=== PATIENT | male | born 1935 | race Caucasian/White ===

== ENCOUNTER 2017-04-13 08:46 | Inpatient (IN) | payer MEDICARE, MEDICAID ==
[~2017-04-13] VITALS: Ht 152.4 cm; Wt 61.7 kg
[~2017-04-13 08:46] MED LIST: AMLO5TAB88 PO; ASPI-1159 PO; CARV12.545 PO; CLOP75TA33 PO; DAILYVITE PO; DOCU-150 PO; DUTA0.5C15 PO; FURO80TA3 PO; MECL-127 PO; OMEP20CA10; QUET25TA PO; QUET25TA34; ROPI0.5T PO; SEVE800T8 PO; SIMV20TA6 PO; TAMS0.4C31 PO; VALS80TA2 PO
[2017-04-13 11:04] LABS: BASOPHILS % 0.3 % (0.0-2.0); HEMATOCRIT. 29.8 % (42.0-52.0); HEMOGLOBIN. 10.2 g/dL (14.0-18.0); LYMPHOCYTES % 8.2 % (20.0-50.0); MEAN CORPUSCULAR HEMOGLOBIN 32.7 pg (28.0-32.0); MEAN CORPUSCULAR VOLUME 95.7 fL (80.0-94.0); MEAN PLATELET VOLUME 8.7 fl (7.4-10.4); MONOCYTES % 9.8 % (2.0-8.0); NEUTROPHILS % 81.7 % (40.0-76.0); PLATELET 155 x1000/uL (130-400); RED BLOOD CELL COUNT 3.11 mill/uL (4.7-6.1); RED CELL DISTRIBUTION WIDTH 17.6 % (11.6-14.6)
[2017-04-13 11:13] LABS: CHLORIDE 99 mEq/L (98-107)
[2017-04-13 11:16] LABS: INR 1.2; PARTIAL THROMBOPLASTIN TIME 30.8 sec (24.0-34.0); PROTHROMBIN TIME 12.2 sec
[2017-04-13 11:20] LABS: CARBON DIOXIDE 27 mEq/L (21-32)
[2017-04-13 11:21] LABS: TROPONIN I 0.04 ng/mL (0.00-0.04)
[2017-04-13 12:43] VITALS: BP 144/72
[2017-04-13] MEDS ORDERED: ACETAMINOPHEN 325MG TABLET PO PRN (12:45)
[2017-04-13] MEDS ORDERED: DOCUSATE SODIUM 100MG CAPSULE PO PRN (12:45)
[2017-04-13] MEDS ORDERED: ONDANSETRON HCL 4MG/2ML VIAL IV PRN (12:45)
[2017-04-13] MEDS ORDERED: IPRATROPIUM/ALBUTEROL 0.5-3(2.5)MG/3ML NEB INH PRN (13:00)
[2017-04-13] MEDS ORDERED: AMIO100T4 PO (13:49)
[2017-04-13] MEDS ORDERED: ROPINIROLE HCL 0.5 MG PO SCH (14:15)
[2017-04-13] MEDS ORDERED: MEDICATION NOT ON FORMULARY EA (Meclizine Hcl 25 MG) PO SCH (14:15)
[2017-04-13] MEDS: AMLODIPINE 5MG TABLET PO SCH (14:24)
[2017-04-13] MEDS ORDERED: FUROSEMIDE 40MG TABLET PO SCH (14:30)
[2017-04-13] MEDS ORDERED: MECLIZINE 25MG TABLET PO PRN (14:30)
[2017-04-13] MEDS: SEVELAMER CARBONATE 800 MG TABLET PO SCH (17:29)
[2017-04-13] MEDS: BLOOD SUGAR DIAGNOSTIC STRIP TEST SCH ×2 (17:29→20:48)
[2017-04-13 20:00] VITALS: BP 156/77
[2017-04-13] MEDS ORDERED: ALPRAZOLAM 0.25 MG TABLET PO PRN (20:45)
[2017-04-13] MEDS ORDERED: ZOLPIDEM TARTRATE 5MG TABLET PO PRN (21:00)
[2017-04-13] MEDS ORDERED: QUETIAPINE FUMARATE 25MG TABLET PO SCH (21:00)
[2017-04-13] MEDS ORDERED: TAMSULOSIN HCL 0.4MG SR CAPSULE PO SCH (21:00)
[2017-04-13] MEDS: LOSARTAN POTASSIUM 50 MG TABLET PO SCH (21:07)
[2017-04-13] MEDS: CARVEDILOL 12.5MG TABLET PO SCH (21:08)
[2017-04-14] VITALS: BP 134/90
[2017-04-14 04:00] VITALS: BP 144/71
[2017-04-14] MEDS: BLOOD SUGAR DIAGNOSTIC STRIP TEST SCH (06:03)
[2017-04-14 06:33] LABS: BASOPHILS % 0.3 % (0.0-2.0); EOSINOPHILS % 0.1 % (0.0-5.0); HEMATOCRIT. 27.3 % (42.0-52.0); HEMOGLOBIN. 9.1 g/dL (14.0-18.0); LYMPHOCYTES % 8.4 % (20.0-50.0); MEAN CORPUSCULAR HEMOGLOBIN 32.4 pg (28.0-32.0); MEAN CORPUSCULAR VOLUME 97.1 fL (80.0-94.0); MEAN PLATELET VOLUME 9.6 fl (7.4-10.4); MONOCYTES % 9.5 % (2.0-8.0); NEUTROPHILS % 81.7 % (40.0-76.0); PLATELET 137 x1000/uL (130-400); RED BLOOD CELL COUNT 2.81 mill/uL (4.7-6.1); RED CELL DISTRIBUTION WIDTH 18.1 % (11.6-14.6)
[2017-04-14 07:17] LABS: CARBON DIOXIDE 22 mEq/L (21-32); CHLORIDE 99 mEq/L (98-107); PHOSPHORUS 4.8 mg/dL (2.5-4.9)
[2017-04-14 07:41] VITALS: BP 146/96
[2017-04-14] MEDS ORDERED: MEDICATION NOT ON FORMULARY EA (Simvastatin 20 MG) PO SCH (09:00)
[2017-04-14] MEDS ORDERED: MEDICATION NOT ON FORMULARY EA (Valsartan (Diovan) 80 MG) PO SCH (09:00)
[2017-04-14] MEDS ORDERED: AMIODARONE HCL 200 MG TABLET PO SCH (09:00)
[2017-04-14] MEDS ORDERED: CLOPIDOGREL 75MG TABLET PO SCH (09:00)
[2017-04-14] MEDS ORDERED: MEDICATION NOT ON FORMULARY EA (Amiodarone HCl 200 MG) PO SCH (09:00)
[2017-04-14] MEDS ORDERED: ATORVASTATIN CALCIUM 10MG TABLET PO SCH (09:00)
[2017-04-14] MEDS ORDERED: DUTASTERIDE 0.5MG CAPSULE PO SCH (09:00)
[2017-04-14] MEDS ORDERED: FOLIC ACID/VITAMIN B COMP W-C TABLET PO SCH (09:00)
[2017-04-14] MEDS: LOSARTAN POTASSIUM 50 MG TABLET PO SCH (09:00)
[2017-04-14] MEDS ORDERED: ASPIRIN 81MG EC TABLET PO SCH (09:00)
[2017-04-14] MEDS: CARVEDILOL 12.5MG TABLET PO SCH (09:00)
[2017-04-14] MEDS: AMLODIPINE 5MG TABLET PO SCH (09:00)
[2017-04-14] MEDS ORDERED: DAILYVITE PO SCH (09:00)
[2017-04-14] MEDS: SEVELAMER CARBONATE 800 MG TABLET PO SCH (09:14)
[2017-04-15] MEDS ORDERED: ROPINIROLE HCL 0.25MG TABLET PO PRN (09:00)
== END 2017-04-14 10:46 | disposition left against medical advice (07) | DRG 291 ==
LOC: ER 08:47 → 8WST 11:54 → ENRESERV 11:59 → EDBEDREQ 11:59
PROVIDERS: ADMIT Family Medicine Adult Medicine; ATTEND Family Medicine Adult Medicine
PROC: 5A1D60Z (ICD-10-PCS; principal; 2017-04-13)
DX: I13.2 Hypertensive heart and chronic kidney disease with heart failure and with stage 5 chronic kidney disease, or end stage renal disease (principal); N18.6 End stage renal disease; I48.92 Unspecified atrial flutter; I50.20 Unspecified systolic (congestive) heart failure; I42.9 Cardiomyopathy, unspecified; D63.8 Anemia in other chronic diseases classified elsewhere; I25.10 Atherosclerotic heart disease of native coronary artery without angina pectoris; F03.90 Unspecified dementia, unspecified severity, without behavioral disturbance, psychotic disturbance, mood disturbance, and anxiety; E11.22 Type 2 diabetes mellitus with diabetic chronic kidney disease; E78.5 Hyperlipidemia, unspecified; F32.9 Major depressive disorder, single episode, unspecified; I48.91 Unspecified atrial fibrillation; N40.0 Benign prostatic hyperplasia without lower urinary tract symptoms; E11.51 Type 2 diabetes mellitus with diabetic peripheral angiopathy without gangrene; I70.90 Unspecified atherosclerosis; Z98.42 Cataract extraction status, left eye; Z98.41 Cataract extraction status, right eye; Z99.2 Dependence on renal dialysis; Z95.1 Presence of aortocoronary bypass graft; Z85.828 Personal history of other malignant neoplasm of skin; Z86.73 Personal history of transient ischemic attack (TIA), and cerebral infarction without residual deficits; Z95.5 Presence of coronary angioplasty implant and graft; I25.2 Old myocardial infarction; Z88.8 Allergy status to other drugs, medicaments and biological substances; Z90.49 Acquired absence of other specified parts of digestive tract
CPT/HCPCS: 36415; 71010; 80048; 80053; 82962; 83605; 83735; 83880; 84100; 84484; 85025; 85610; 85730; 87040; 93005; 93970; 99285; J7030

== ENCOUNTER 2017-07-21 21:39 | Inpatient (IN) | payer MEDICARE, MEDICAID ==
[~2017-07-21] VITALS: Ht 162.6 cm; Wt 61.2 kg
[~2017-07-21 21:39] MED LIST changes: +AMIO100T4 PO; +FLUO-123 PO; -OMEP20CA10; -QUET25TA34
[2017-07-21] MEDS ORDERED: ASPIRIN 81MG TABLET PO ONE (22:30)
[2017-07-22] LABS: BASOPHILS % 0.8 % (0.0-2.0); EOSINOPHILS % 0.8 % (0.0-5.0); HEMATOCRIT. 40.1 % (42.0-52.0); HEMOGLOBIN. 12.9 g/dL (14.0-18.0); LYMPHOCYTES % 12.1 % (20.0-50.0); MEAN CORPUSCULAR HEMOGLOBIN 31.7 pg (28.0-32.0); MEAN CORPUSCULAR VOLUME 98.1 fL (80.0-94.0); MEAN PLATELET VOLUME 8.5 fl (7.4-10.4); MONOCYTES % 8.6 % (2.0-8.0); NEUTROPHILS % 77.7 % (40.0-76.0); PLATELET 247 x1000/uL (130-400); RED BLOOD CELL COUNT 4.08 mill/uL (4.7-6.1); RED CELL DISTRIBUTION WIDTH 17.5 % (11.6-14.6)
[2017-07-22 00:07] LABS: INR 1.2; PROTHROMBIN TIME 12.7 sec (9.4-11.6)
[2017-07-22 00:17] LABS: CARBON DIOXIDE 29 mEq/L (21-32); CHLORIDE 97 mEq/L (98-107); ETHANOL BLOOD < 10 mg/dL; TROPONIN I 0.02 ng/mL (0.00-0.04)
[2017-07-22 03:00] VITALS: BP 145/57
[2017-07-22 03:37] LABS: BASOPHILS % 0.8 % (0.0-2.0); EOSINOPHILS % 0.8 % (0.0-5.0); HEMATOCRIT. 38.5 % (42.0-52.0); HEMOGLOBIN. 12.4 g/dL (14.0-18.0); LYMPHOCYTES % 14.4 % (20.0-50.0); MEAN CORPUSCULAR HEMOGLOBIN 31.7 pg (28.0-32.0); MEAN CORPUSCULAR VOLUME 98.2 fL (80.0-94.0); PLATELET 244 x1000/uL (130-400); RED BLOOD CELL COUNT 3.92 mill/uL (4.7-6.1); RED CELL DISTRIBUTION WIDTH 17.7 % (11.6-14.6)
[2017-07-22 03:49] LABS: PHOSPHORUS 4.9 mg/dL (2.5-4.9)
[2017-07-22 03:53] LABS: TROPONIN I 0.03 ng/mL (0.00-0.04)
[2017-07-22 03:56] LABS: AMMONIA 26 uMol/L (<32)
[2017-07-22] MEDS ORDERED: ACETAMINOPHEN 325MG TABLET PO PRN (05:00)
[2017-07-22] MEDS ORDERED: HYDROCODONE/ACETAMINOPHEN 5/325MG TABLET PO PRN (05:00)
[2017-07-22] MEDS ORDERED: MORPHINE SULFATE 10 MG/ML CPJ IV PRN (05:00)
[2017-07-22] MEDS ORDERED: MEDICATION NOT ON FORMULARY EA (Meclizine Hcl 25 MG) PO PRN (05:15)
[2017-07-22] MEDS ORDERED: DOCUSATE SODIUM 100MG CAPSULE PO PRN (05:15)
[2017-07-22] MEDS ORDERED: ROPINIROLE HCL 1 MG PO SCH (05:15)
[2017-07-22] MEDS ORDERED: ARIP2TAB3 PO (05:40)
[2017-07-22 06:04] VITALS: BP 145/57
[2017-07-22 08:00] VITALS: BP 142/57
[2017-07-22] MEDS: FUROSEMIDE 80MG TABLET PO SCH (08:35)
[2017-07-22] MEDS: SEVELAMER CARBONATE 800 MG TABLET PO SCH ×3 (08:35→17:18)
[2017-07-22] MEDS: CLOPIDOGREL 75MG TABLET PO SCH (08:36)
[2017-07-22] MEDS: CARVEDILOL 12.5MG TABLET PO SCH ×2 (08:36→20:45)
[2017-07-22] MEDS: FLUOXETINE HCL 10 MG CAPSULE PO SCH (08:36)
[2017-07-22] MEDS: ARIPIPRAZOLE 2MG TABLET PO SCH (08:36)
[2017-07-22] MEDS: ASPIRIN 81MG EC TABLET PO SCH (08:36)
[2017-07-22] MEDS: AMIODARONE HCL 200 MG TABLET PO SCH (08:37)
[2017-07-22] MEDS: AMLODIPINE 10MG TABLET PO SCH (08:37)
[2017-07-22] MEDS: LOSARTAN POTASSIUM 50 MG TABLET PO SCH ×2 (08:37→20:45)
[2017-07-22] MEDS ORDERED: MULTIVITAMINS,THER W-MINERALS TABLET PO SCH (09:00)
[2017-07-22] MEDS ORDERED: MEDICATION NOT ON FORMULARY EA (Amiodarone HCl 200 MG) PO SCH (09:00)
[2017-07-22] MEDS ORDERED: MEDICATION NOT ON FORMULARY EA (Valsartan (Diovan) 80 MG) PO SCH (09:00)
[2017-07-22] MEDS ORDERED: DAILYVITE PO SCH (09:00)
[2017-07-22] MEDS ORDERED: CLONIDINE 0.2MG TABLET PO PRN (11:30)
[2017-07-22 11:46] VITALS: BP 140/57
[2017-07-22] MEDS ORDERED: CLONIDINE 0.1MG TABLET PO PRN (12:30)
[2017-07-22] MEDS ORDERED: ROPINIROLE HCL 1 MG PO PRN (13:45)
[2017-07-22 16:00] VITALS: BP 130/56
[2017-07-22 20:00] VITALS: BP 155/61
[2017-07-22] MEDS: TAMSULOSIN HCL 0.4MG SR CAPSULE PO SCH (20:45)
[2017-07-22] MEDS: QUETIAPINE FUMARATE 25MG TABLET PO SCH (20:45)
[2017-07-22] MEDS ORDERED: MECLIZINE 25MG TABLET PO PRN (23:30)
[2017-07-22] MEDS ORDERED: ROPINIROLE HCL 1MG TABLET PO PRN (23:45)
[2017-07-23] VITALS (7 sets, daily range): BP systolic 133–152; BP diastolic 53–61
[2017-07-23] MEDS: FLUOXETINE HCL 10 MG CAPSULE PO SCH (08:43)
[2017-07-23] MEDS: CLOPIDOGREL 75MG TABLET PO SCH (08:43)
[2017-07-23] MEDS: SEVELAMER CARBONATE 800 MG TABLET PO SCH ×3 (08:43→12:13)
[2017-07-23] MEDS: FOLIC ACID/VITAMIN B COMP W-C TABLET PO SCH (08:43)
[2017-07-23] MEDS: ASPIRIN 81MG EC TABLET PO SCH (08:43)
[2017-07-23] MEDS: AMLODIPINE 10MG TABLET PO SCH (08:44)
[2017-07-23] MEDS: ARIPIPRAZOLE 2MG TABLET PO SCH (08:44)
[2017-07-23] MEDS: AMIODARONE HCL 200 MG TABLET PO SCH (08:44)
[2017-07-23] MEDS: CARVEDILOL 12.5MG TABLET PO SCH ×2 (08:44→20:15)
[2017-07-23] MEDS: LOSARTAN POTASSIUM 50 MG TABLET PO SCH ×2 (08:44→20:15)
[2017-07-23] MEDS: FUROSEMIDE 80MG TABLET PO SCH (08:47)
[2017-07-23 08:54] LABS: BASOPHILS % 0.7 % (0.0-2.0); EOSINOPHILS % 0.6 % (0.0-5.0); HEMATOCRIT. 35.4 % (42.0-52.0); HEMOGLOBIN. 11.6 g/dL (14.0-18.0); LYMPHOCYTES % 14.9 % (20.0-50.0); MEAN CORPUSCULAR HEMOGLOBIN 31.9 pg (28.0-32.0); MEAN CORPUSCULAR VOLUME 97.6 fL (80.0-94.0); MEAN PLATELET VOLUME 9.4 fl (7.4-10.4); NEUTROPHILS % 74.8 % (40.0-76.0); PLATELET 195 x1000/uL (130-400); RED BLOOD CELL COUNT 3.63 mill/uL (4.7-6.1); RED CELL DISTRIBUTION WIDTH 17.2 % (11.6-14.6)
[2017-07-23 09:09] LABS: CHLORIDE 98 mEq/L (98-107)
[2017-07-23 09:24] LABS: CARBON DIOXIDE 24 mEq/L (21-32); PHOSPHORUS 4.2 mg/dL (2.5-4.9); TROPONIN I 0.03 ng/mL (0.00-0.04)
[2017-07-23] MEDS: QUETIAPINE FUMARATE 25MG TABLET PO SCH (20:15)
[2017-07-23] MEDS: TAMSULOSIN HCL 0.4MG SR CAPSULE PO SCH (20:15)
[2017-07-24] VITALS: BP 129/61
[2017-07-24 04:00] VITALS: BP 117/61
[2017-07-24 08:00] VITALS: BP 133/58
[2017-07-24] MEDS: FUROSEMIDE 80MG TABLET PO SCH (09:00)
[2017-07-24] MEDS: CARVEDILOL 12.5MG TABLET PO SCH ×2 (09:00→20:23)
[2017-07-24] MEDS: LOSARTAN POTASSIUM 50 MG TABLET PO SCH ×2 (09:00→20:25)
[2017-07-24] MEDS ORDERED: MEDICATION NOT ON FORMULARY EA (Simvastatin 20 MG) PO SCH (09:00)
[2017-07-24] MEDS ORDERED: POLYETHYLENE GLYCOL 3350 (17GM) 1 DOSE PACK PO NR (09:30)
[2017-07-24] MEDS: FOLIC ACID/VITAMIN B COMP W-C TABLET PO SCH (10:26)
[2017-07-24] MEDS: AMIODARONE HCL 200 MG TABLET PO SCH (10:26)
[2017-07-24] MEDS: CLOPIDOGREL 75MG TABLET PO SCH (10:27)
[2017-07-24] MEDS: ARIPIPRAZOLE 2MG TABLET PO SCH (10:27)
[2017-07-24] MEDS: ASPIRIN 81MG EC TABLET PO SCH (10:27)
[2017-07-24] MEDS: FLUOXETINE HCL 10 MG CAPSULE PO SCH (10:27)
[2017-07-24] MEDS: DOCUSATE SODIUM 100MG CAPSULE PO SCH ×2 (10:30→17:23)
[2017-07-24 12:00] VITALS: BP 127/50
[2017-07-24] MEDS: SEVELAMER CARBONATE 800 MG TABLET PO SCH ×2 (12:04→17:23)
[2017-07-24 12:42] LABS: BASOPHILS % 0.8 % (0.0-2.0); EOSINOPHILS % 1.8 % (0.0-5.0); HEMATOCRIT. 36.9 % (42.0-52.0); LYMPHOCYTES % 16.5 % (20.0-50.0); MEAN CORPUSCULAR HEMOGLOBIN 31.7 pg (28.0-32.0); MEAN CORPUSCULAR VOLUME 97.2 fL (80.0-94.0); MEAN PLATELET VOLUME 9.7 fl (7.4-10.4); MONOCYTES % 10.3 % (2.0-8.0); NEUTROPHILS % 70.6 % (40.0-76.0); PLATELET 203 x1000/uL (130-400); RED BLOOD CELL COUNT 3.79 mill/uL (4.7-6.1); RED CELL DISTRIBUTION WIDTH 17.3 % (11.6-14.6)
[2017-07-24 12:56] LABS: CARBON DIOXIDE 28 mEq/L (21-32); CHLORIDE 96 mEq/L (98-107); PHOSPHORUS 5.8 mg/dL (2.5-4.9)
[2017-07-24 16:00] VITALS: BP 123/57
[2017-07-24 20:00] VITALS: BP 129/53
[2017-07-24 20:22] LABS: AMMONIA 25 uMol/L (<32)
[2017-07-24] MEDS: QUETIAPINE FUMARATE 25MG TABLET PO SCH (20:22)
[2017-07-24] MEDS: TAMSULOSIN HCL 0.4MG SR CAPSULE PO SCH (20:23)
[2017-07-24 20:43] LABS: T4 FREE 1.18 ng/dL (0.76-1.46)
[2017-07-24 20:58] LABS: VITAMIN B12 SERUM 993 pg/mL (211-911)
[2017-07-24] MEDS ORDERED: ATORVASTATIN CALCIUM 10MG TABLET PO SCH (21:00)
[2017-07-24 21:49] LABS: FOLIC ACID (FOLATE) SERUM > 20.00 ng/mL (>5.38)
[2017-07-25] VITALS: BP 123/54
[2017-07-25 04:00] VITALS: BP 130/51
[2017-07-25 04:45] LABS: *AMPHETAMINES SCREEN URINE NEGATIVE (NEGATIVE); *BARBITURATES SCREEN URINE NEGATIVE (NEGATIVE); *BENZODIAZEPINES SCREEN URINE NEGATIVE (NEGATIVE); *COCAINE SCREEN URINE NEGATIVE (NEGATIVE); CANNABINOID URINE SCREEN NEGATIVE (NEGATIVE); METHADONE URINE SCREEN NEGATIVE (NEGATIVE); OPIATES URINE SCREEN NEGATIVE (NEGATIVE); PHENCYCLIDINE URINE SCREEN NEGATIVE (NEGATIVE)
[2017-07-25 07:08] LABS: BASOPHILS % 0.8 % (0.0-2.0); EOSINOPHILS % 3.2 % (0.0-5.0); HEMATOCRIT. 33.8 % (42.0-52.0); HEMOGLOBIN. 11.3 g/dL (14.0-18.0); MEAN CORPUSCULAR HEMOGLOBIN 32.2 pg (28.0-32.0); MEAN CORPUSCULAR VOLUME 96.3 fL (80.0-94.0); MEAN PLATELET VOLUME 9.2 fl (7.4-10.4); MONOCYTES % 5.2 % (2.0-8.0); NEUTROPHILS % 62.8 % (40.0-76.0); PLATELET 196 x1000/uL (130-400); RED BLOOD CELL COUNT 3.51 mill/uL (4.7-6.1); RED CELL DISTRIBUTION WIDTH 17.4 % (11.6-14.6)
[2017-07-25 07:34] LABS: PHOSPHORUS 4.2 mg/dL (2.5-4.9)
[2017-07-25 07:35] VITALS: BP 131/71
[2017-07-25] MEDS ORDERED: AMLODIPINE 5MG TABLET PO SCH (09:00)
[2017-07-25] MEDS: ARIPIPRAZOLE 2MG TABLET PO SCH (10:09)
[2017-07-25] MEDS: DOCUSATE SODIUM 100MG CAPSULE PO SCH (10:09)
[2017-07-25] MEDS: FOLIC ACID/VITAMIN B COMP W-C TABLET PO SCH (10:09)
[2017-07-25] MEDS: SEVELAMER CARBONATE 800 MG TABLET PO SCH ×2 (10:09→11:56)
[2017-07-25] MEDS: FUROSEMIDE 80MG TABLET PO SCH (10:09)
[2017-07-25] MEDS: FLUOXETINE HCL 10 MG CAPSULE PO SCH (10:10)
[2017-07-25] MEDS: CARVEDILOL 12.5MG TABLET PO SCH (10:10)
[2017-07-25] MEDS: ASPIRIN 81MG EC TABLET PO SCH (10:11)
[2017-07-25] MEDS: LOSARTAN POTASSIUM 50 MG TABLET PO SCH (10:11)
[2017-07-25] MEDS: AMIODARONE HCL 200 MG TABLET PO SCH (10:11)
[2017-07-25] MEDS: CLOPIDOGREL 75MG TABLET PO SCH (10:13)
[2017-07-25 11:40] VITALS: BP 135/52
[2017-07-25 15:51] VITALS: BP 126/56
[2017-07-25 16:13] VITALS: BP 126/56
[2017-07-25] MEDS ORDERED: QUETIAPINE FUMARATE 25MG TABLET PO SCH (21:00)
== END 2017-07-25 19:00 | disposition home health service (06) | DRG 291 ==
LOC: ER 22:05 → SUPCPDRO 23:59 → 8WST 07-22 01:03 → ENRESERV 07-22 02:07 → 8WST 07-22 14:44
PROVIDERS: ADMIT Family Medicine Adult Medicine; ATTEND Family Medicine Adult Medicine
PROC: 5A1D70Z Performance of Urinary Filtration, Intermittent, Less than 6 Hours Per Day (ICD-10-PCS; principal; 2017-07-24)
PROC: 5A1D70Z Performance of Urinary Filtration, Intermittent, Less than 6 Hours Per Day (ICD-10-PCS; 2017-07-25)
DX: I13.2 Hypertensive heart and chronic kidney disease with heart failure and with stage 5 chronic kidney disease, or end stage renal disease (principal); I50.33 Acute on chronic diastolic (congestive) heart failure; J96.91 Respiratory failure, unspecified with hypoxia; G92 Toxic encephalopathy; N18.6 End stage renal disease; N25.81 Secondary hyperparathyroidism of renal origin; E11.22 Type 2 diabetes mellitus with diabetic chronic kidney disease; E83.39 Other disorders of phosphorus metabolism; I48.0 Paroxysmal atrial fibrillation; D63.8 Anemia in other chronic diseases classified elsewhere; E78.5 Hyperlipidemia, unspecified; F41.9 Anxiety disorder, unspecified; I25.10 Atherosclerotic heart disease of native coronary artery without angina pectoris; K40.90 Unilateral inguinal hernia, without obstruction or gangrene, not specified as recurrent; K80.20 Calculus of gallbladder without cholecystitis without obstruction; E78.00 Pure hypercholesterolemia, unspecified; F03.90 Unspecified dementia, unspecified severity, without behavioral disturbance, psychotic disturbance, mood disturbance, and anxiety; F31.9 Bipolar disorder, unspecified; I25.2 Old myocardial infarction; I45.10 Unspecified right bundle-branch block; I48.2 Chronic atrial fibrillation; K21.9 Gastro-esophageal reflux disease without esophagitis; K57.30 Diverticulosis of large intestine without perforation or abscess without bleeding; N40.0 Benign prostatic hyperplasia without lower urinary tract symptoms; Z79.899 Other long term (current) drug therapy; Z82.49 Family history of ischemic heart disease and other diseases of the circulatory system; Z83.3 Family history of diabetes mellitus; Z86.73 Personal history of transient ischemic attack (TIA), and cerebral infarction without residual deficits; Z95.1 Presence of aortocoronary bypass graft; Z95.5 Presence of coronary angioplasty implant and graft; Z99.2 Dependence on renal dialysis; Z88.8 Allergy status to other drugs, medicaments and biological substances; Z79.82 Long term (current) use of aspirin
CPT/HCPCS: 36415; 70551; 71010; 74176; 76705; 80048; 80053; 80305; 82105; 82140; 82607; 82746; 82962; 83036; 83605; 83690; 83735; 83880; 84100; 84439; 84443; 84481; 84484; 85025; 85379; 85610; 93005; 93970; 99285; C1893; G0482; J7030